=== PATIENT | male | born 1975 | race Caucasian/White ===

== ENCOUNTER 2017-06-27 12:44 | Emergency (ER) | payer BC ==
[~2017-06-27] VITALS: Ht 172.7 cm; Wt 74.8 kg
[~2017-06-27 12:44] MED LIST: CYCL10TA2 PO; DOCU-109 PO; HYDR-2762 PO; HYDR-2766 PO; HYDR-963 PO; METH-38 PO; OXYC-323 PO
[2017-06-27] MEDS ORDERED: IV NORMAL SALINE 1000ML BAG 1,000 ML IV SCH (13:22)
[2017-06-27] MEDS ORDERED: ONDANSETRON PF 4 MG/2 ML VIAL. IV ONE (13:30)
[2017-06-27 13:34] LABS: BASO % 0 % (0-3); EOS % 0 % (0-3); HEMATOCRIT 51.6 % (39.0-53.0); HEMOGLOBIN 17.9 g/dL (13.0-17.5); LYMPH # 2.8 x10^3/uL (1.0-4.8); LYMPH % 25 % (24-48); MEAN CORPUSCULAR HEMOGLOBIN 31 pg (25-35); MEAN CORPUSCULAR HGB CONC 35 g/dL (31-37); MEAN CORPUSCULAR VOLUME 89 fL (79-100); MONO % 5 % (0-9); NEUT % 69 % (31-73); PLATELET COUNT 291 x10^3/uL (140-400); RED BLOOD COUNT 5.78 x10^6/uL (4.30-5.70); RED CELL DISTRIBUTION WIDTH 13.9 % (11.5-14.5); WHITE BLOOD COUNT 10.9 x10^3/uL (4.0-11.0)
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
[2017-06-27 13:45] LABS: CALCIUM 9.3 mg/dL (8.5-10.1); CREATININE 1.1 mg/dL (0.7-1.3); GFR 73.1; POTASSIUM 3.7 mmol/L (3.5-5.1)
[2017-06-27] MEDS: fentaNYL PF VIAL 100 MCG/2 ML VIAL IV PRN ×2 (13:46→14:46)
[2017-06-27 13:51] LABS: ALBUMIN 4.6 g/dL (3.4-5.0); ALBUMIN/GLOBULIN RATIO 1.2 (1.0-1.7); TOTAL BILIRUBIN 0.6 mg/dL (0.2-1.0); TOTAL PROTEIN 8.6 g/dL (6.4-8.2)
[2017-06-27] MEDS ORDERED: CONTRAST GIVEN MC PRN (14:30)
[2017-06-27] MEDS ORDERED: IOHEXOL 300 MG/ML 75 ML VIAL IV ONE (14:30)
[2017-06-27 15:00] LABS: BILIRUBIN,URINE NEGATIVE (NEG); GLUCOSE,URINE NEGATIVE (NEG); NITRITE,URINE NEGATIVE (NEG); PROTEIN,URINE 30 mg/dL (NEG-TRACE); UROBILINOGEN,URINE 0.2 mg/dL (0.2 mg/dL)
[2017-06-27 15:29] LABS: BACTERIA,URINE 0 /HPF (0-FEW); RBC,URINE OCC /HPF (0-2); WBC,URINE OCC /HPF (0-4)
--- NOTE | 2017-06-27 15:36 | RAD ---
Indication abdominal pain. Nausea and vomiting. Axial images through the abdomen and pelvis were obtained. 300 cc of Omnipaque 300 was administered intravenously. No oral contrast was administered for this exam although note is made of contrast in the right colon and to a lesser extent in the transverse colon. No prior CT imaging of the abdomen or pelvis is available. An acute finding at the lung bases is not seen. There is a nodule in the right lung, medially interposed between the esophagus and inferior vena cava, image 5 series 2 measuring approximately 6 mm in greatest dimension. Follow-up imaging along the lines of the Fleischner criteria should be considered. The liver and spleen appear unremarkable. The gallbladder is largely contracted but grossly normal. No pancreatic abnormality is seen. The adrenal glands and kidneys appear normal. Postoperative changes associated with the right acetabulum are noted. Orthopedic screws are noted. In the pelvis no focal mass is seen. There is mild dilatation of proximal loops of small bowel. More distal loops are collapsed. Findings are nonspecific but could represent a low-grade obstructing process. Enteritis would be an additional consideration. There is some associated mild thickening of the proximal loops of small bowel. This would somewhat favor enteritis. IMPRESSION: No focal mass seen in the abdomen or pelvis. Mild dilatation of proximal loops of small bowel. More distal loops are collapsed. Additionally the proximal loops of small bowel demonstrate mild thickening. Findings are suggestive of enteritis although a partially obstructing mechanical small bowel process is not entirely excluded 6 mm nodule medially in the right lower lobe. Follow-up imaging along the lines of the Fleischner criteria should be considered. Nodules detected incidentally at non-screening CT Nodule size (mm) less than or equal to 4 Low Risk patients- no follow-up needed High Risk patients- follow-up at 12 months and if no change, no further imaging needed. Nodule size > 4-6 mm Low risk patients- follow- up at 12 months and if no change, no further imaging needed High risk patients- initial follow-up CT at 6-12 months and then at 18-24 months if no change. Nodule Size > 6-8 mm Low risk patients- initial follow-up CT at 6-12 months and then at 18-24 months if no change. High risk patients- initial follow- up CT at 3-6 months and then at 9-12 months if no change, Nodule Size >8 mm Either low or high risk patients: Follow-up CT at around 3, 9 and 24 months Dynamic contrast enhanced CT, PET, and/or biopsy Note: newly detected indeterminate nodule in person 35 years of age or older. Low risk patients- minimal or absent history of smoking and/or other known risk factors. High risk patients- history of smoking or of other known risk factors.
[2017-06-27 15:39] VITALS: BP 131/76
[2017-06-27] MEDS ORDERED: DICYCLOMINE HCL 10 MG CAPSULE PO ONE (16:15)
[2017-06-27] MEDS ORDERED: ONDA4TAB7 PO (16:19)
[2017-06-27] MEDS ORDERED: DICY10CA53 PO (16:19)
== END 2017-06-27 16:20 | disposition home or self-care (01) ==
LOC: ER 12:44
DX: R10.30 Lower abdominal pain, unspecified (principal); R11.2 Nausea with vomiting, unspecified; R19.7 Diarrhea, unspecified; F10.10 Alcohol abuse, uncomplicated; F12.10 Cannabis abuse, uncomplicated; G89.29 Other chronic pain; Z79.891 Long term (current) use of opiate analgesic
CPT/HCPCS: 36415; 74177; 80053; 81001; 83690; 85027; 87086; 96361; 96374; 96375; 96376; 99285; J2405; J3010; J7030; Q9967

== ENCOUNTER 2017-08-22 09:28 | Emergency (ER) | payer BC ==
[~2017-08-22] VITALS: Ht 172.7 cm; Wt 72.6 kg
[~2017-08-22 09:28] MED LIST changes: +DICY10CA53 PO; +ONDA4TAB7 PO
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
[2017-08-22] MEDS: IV NORMAL SALINE 1000ML BAG 1,000 ML IV SCH (10:44)
[2017-08-22] MEDS: DICYCLOMINE 20 MG/2 ML AMPUL. IM ONE (10:45)
[2017-08-22] MEDS: ONDANSETRON PF 4 MG/2 ML VIAL. IV ONE (10:45)
[2017-08-22] MEDS: IV NORMAL SALINE 1000ML BAG 1,000 ML IV ONE (10:54)
[2017-08-22 12:08] LABS: BILIRUBIN,URINE NEGATIVE (NEG); GLUCOSE,URINE NEGATIVE (NEG); NITRITE,URINE NEGATIVE (NEG); PROTEIN,URINE 30 mg/dL (NEG-TRACE); UROBILINOGEN,URINE 0.2 mg/dL (0.2 mg/dL)
[2017-08-22 12:17] LABS: BASO % 0 % (0-3); EOS % 0 % (0-3); HEMATOCRIT 51.9 % (39.0-53.0); HEMOGLOBIN 17.7 g/dL (13.0-17.5); LYMPH # 1.3 x10^3/uL (1.0-4.8); LYMPH % 9 % (24-48); MEAN CORPUSCULAR HEMOGLOBIN 31 pg (25-35); MEAN CORPUSCULAR HGB CONC 34 g/dL (31-37); MEAN CORPUSCULAR VOLUME 91 fL (79-100); MONO % 4 % (0-9); NEUT % 88 % (31-73); PLATELET COUNT 319 x10^3/uL (140-400); RED BLOOD COUNT 5.72 x10^6/uL (4.30-5.70); RED CELL DISTRIBUTION WIDTH 13.4 % (11.5-14.5); WHITE BLOOD COUNT 14.7 x10^3/uL (4.0-11.0)
--- NOTE | 2017-08-22 12:22 | RAD ---
Three-view acute abdominal series. History: Diffuse abdominal pain low back pain, nausea and vomiting 3 views were taken for acute abdominal series. Lungs are free of infiltrates. Heart is normal in size. There is no effusion. There is no free air on the upright view of the abdomen. There are air-fluid levels in the small bowel from a partial small bowel obstruction or ileus. There is degenerative disc disease in lower lumbar spine. There is an old healed pelvic fracture with plate and screws on the right side of the pelvis. There is a broken drill bit at the pelvis on the right. Impression: 1. Dilated small bowel with fluid levels from a partial bowel obstruction or ileus. 2. No acute infiltrates.
[2017-08-22 12:28] LABS: ALBUMIN 4.6 g/dL (3.4-5.0); ALBUMIN/GLOBULIN RATIO 1.1 (1.0-1.7); CREATININE 0.9 mg/dL (0.7-1.3); GFR 92.1; TOTAL BILIRUBIN 0.5 mg/dL (0.2-1.0); TOTAL PROTEIN 8.8 g/dL (6.4-8.2)
[2017-08-22 12:43] LABS: BACTERIA,URINE 0 /HPF (0-FEW); RBC,URINE 0 /HPF (0-2); WBC,URINE 0 /HPF (0-4)
[2017-08-22 13:08] LABS: % BASOS 1 % (0-3); PLT ESTIMATE ADEQUATE (ADEQUATE)
[2017-08-22] MEDS: POTASSIUM CHLORIDE 20 MEQ TABLET.ER. PO ONE (13:51)
[2017-08-22] MEDS: MORPHINE SULFATE 10 MG/ML VIAL. IV ONE (13:52)
[2017-08-22] MEDS ORDERED: CONTRAST GIVEN MC PRN (14:00)
[2017-08-22] MEDS: IOHEXOL 300 MG/ML 75 ML VIAL IV ONE (14:25)
--- NOTE | 2017-08-22 14:56 | RAD ---
One or more of the following individualized dose reduction techniques were utilized for this examination: 1. Automated exposure control 2. Adjustment of the mA and/or kV according to patient size 3. Use of iterative reconstruction technique CT abdomen and pelvis with contrast. History: Abdominal pain CT scan of the abdomen and pelvis was done using 75 mL Isovue-370 contrast. Lung bases are clear. There is no effusion. There is mild facet arthritis and degenerative change in the lumbar spine. Liver is normal in appearance. There is no calcified gallstone. Spleen and adrenal glands are normal. Pancreas is unremarkable. There is no mass or hydronephrosis and the kidneys. There is mild nonspecific dilatation of the proximal small bowel. Distal small bowel is nondistended. There is fluid in the right colon. Pattern is more likely to be nonspecific mild proximal small bowel ileus rather than obstruction. There is no adenopathy. There is no free fluid. Appendix is normal. Impression: 1. Degenerative changes in the lumbar spine. 2. Mild proximal small bowel dilatation probably a mild ileus or gastroenteritis.
[2017-08-22] MEDS ORDERED: METO10TA81 PO (15:07)
[2017-08-22] MEDS ORDERED: HYDR-971 PO (15:07)
[2017-08-22 15:42] VITALS: BP 169/93
== END 2017-08-22 15:49 | disposition home or self-care (01) ==
LOC: ER 09:28
DX: R11.2 Nausea with vomiting, unspecified (principal); R19.7 Diarrhea, unspecified; R10.31 Right lower quadrant pain; R10.32 Left lower quadrant pain; R10.11 Right upper quadrant pain; R10.12 Left upper quadrant pain; R10.13 Epigastric pain; R10.84 Generalized abdominal pain; F17.200 Nicotine dependence, unspecified, uncomplicated; F10.10 Alcohol abuse, uncomplicated; Z88.6 Allergy status to analgesic agent
CPT/HCPCS: 36415; 74022; 74177; 80053; 81001; 83690; 85007; 85025; 96361; 96372; 96374; 96375; 99285; J0500; J2270; J2405; J7030; Q9967

== ENCOUNTER 2021-04-30 14:50 | Emergency (ER) | payer SELFPAY ==
[~2021-04-30] VITALS: Ht 172.7 cm; Wt 77.3 kg
[~2021-04-30 14:50] MED LIST changes: -HYDR-2762 PO; +HYDR-2765 PO; -HYDR-2766 PO; +HYDR-2769 PO; +HYDR-3135 PO; +HYDR-3164 PO; -HYDR-963 PO; +METO10TA81 PO; -OXYC-323 PO; +OXYC1TAB15 PO
[2021-04-30] MEDS ORDERED: FAMOTIDINE 20 MG/2 ML VIAL IVP ONE (15:30)
[2021-04-30] MEDS ORDERED: ONDANSETRON PF 4 MG/2 ML VIAL. IVP ONE (15:30)
[2021-04-30] MEDS ORDERED: IV NORMAL SALINE 1000ML BAG 1,000 ML IV ONE (15:30)
[2021-04-30 15:42] LABS: BASO # 0.1 x10^3/uL (0.0-0.2); BASO % 1 % (0-3); EOS % 0 % (0-3); HEMATOCRIT 45.2 % (39.0-53.0); LYMPH # 1.8 x10^3/uL (1.0-4.8); LYMPH % 27 % (24-48); MEAN CORPUSCULAR HEMOGLOBIN 32 pg (25-35); MEAN CORPUSCULAR HGB CONC 35 g/dL (31-37); MEAN CORPUSCULAR VOLUME 89 fL (79-100); MONO # 0.3 x10^3/uL (0.0-1.1); MONO % 5 % (0-9); NEUT # 4.5 x10^3/uL (1.8-7.7); NEUT % 67 % (31-73); PLATELET COUNT 260 x10^3/uL (140-400); RED BLOOD COUNT 5.05 x10^6/uL (4.30-5.70); RED CELL DISTRIBUTION WIDTH 13.4 % (11.5-14.5); WHITE BLOOD COUNT 6.7 x10^3/uL (4.0-11.0)
[2021-04-30 15:44] LABS: BILIRUBIN,URINE NEGATIVE (NEG); CLARITY,URINE CLEAR; NITRITE,URINE NEGATIVE (NEG); PH,URINE 5.5 (<5.0-8.0); PROTEIN,URINE NEGATIVE (NEG-TRACE); UROBILINOGEN,URINE 0.2 mg/dL (0.2 mg/dL)
[2021-04-30 15:50] LABS: COLOR,URINE STRAW
[2021-04-30 15:51] LABS: RBC,URINE RARE /HPF (0-2); WBC,URINE 0 /HPF (0-4)
[2021-04-30 15:52] LABS: BACTERIA,URINE 0 /HPF (0-FEW)
[2021-04-30 15:54] LABS: CALCIUM 9.1 mg/dL (8.5-10.1); GFR 80.1; POTASSIUM 4.3 mmol/L (3.5-5.1)
[2021-04-30 15:55] LABS: BARBITURATES NEG (NEG); BENZODIAZEPINES NEG (NEG); CANNABINOIDS POS (NEG); COCAINE NEG (NEG); METHADONE NEG (NEG); OPIATES POS (NEG); PHENCYCLIDINE NEG (NEG)
[2021-04-30 16:00] LABS: ALBUMIN 4.3 g/dL (3.4-5.0); ALBUMIN/GLOBULIN RATIO 1.2 (1.0-1.7); TOTAL BILIRUBIN 0.5 mg/dL (0.2-1.0); TOTAL PROTEIN 7.8 g/dL (6.4-8.2)
[2021-04-30 16:04] LABS: AMPHETAMINE/METHAMPHETAMINE NEG (NEG)
[2021-04-30 16:04] LABS: ACETAMIN < 2 mcg/ml (10-30); ETHANOL < 10 mg/dL (0-10); SALIC 5.6 mg/dL (2.8-20.0)
[2021-04-30] MEDS ORDERED: fentaNYL PF VIAL 100 MCG/2 ML VIAL IVP ONE (16:15)
[2021-04-30] MEDS ORDERED: IOHEXOL 300 MG/ML 100ML VIAL. IV ONE (16:15)
[2021-04-30] MEDS ORDERED: CONTRAST GIVEN. MC PRN (16:30)
--- NOTE | 2021-04-30 17:19 | RAD ---
EXAM: CT Abdomen and Pelvis with IV contrast CLINICAL HISTORY: Reason: abd pain / Spl. Instructions: [id number] 75ML / History: . COMPARISON: none TECHNIQUE: Helical CT of the abdomen and pelvis was performed following the administration of intrave nous contrast. Axial, coronal and sagittal reformatted images were generated. PQRS compliance statement - One or more of the following individualized dose reduction techniques wer e utilized for this study: 1. Automated exposure control 2. Adjustment of the mA and/or kV according to patient size 3. Use of iterative reconstruction technique FINDINGS: Lower Chest: Lung bases are clear. Abdomen and Pelvis: Spleen, adrenal glands, liver and gallbladder are unremarkable. Pancreas is normal in appearance. Symmetric nephrograms. Subcentimeter hypodense left interpolar renal lesion is too small to accuratel y characterize. No hydronephrosis. Bladder wall thickening may be seen with cystitis. Appendix is normal. Moderate colonic stool content is seen. No small or large bowel dilatation. No steve wel obstruction. Trace infiltration about the sigmoid colon. No abdominal pelvic ascites. No abdominal or pelvic lymphadenopathy. Aorta is normal in caliber with atherosclerotic calcifications. Trace fat-containing periumbilical hernia. Bones: Right iliac and acetabular post surgical change. Femoral head osteonecrosis bilaterally. IMPRESSION: 1. Bladder wall thickening likely cystitis. 2. Trace infiltration about the sigmoid colon possibly infectious or inflammatory colitis. 3. 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 Electronically signed by: Lazarus Min MD (04/30/2021 5:17 PM) JEAN
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
[2021-04-30] MEDS ORDERED: HYDR-2759 PO (17:53)
[2021-04-30] MEDS ORDERED: METR500T PO (17:53)
[2021-04-30] MEDS ORDERED: CIPR500T94 PO (17:53)
[2021-04-30] MEDS ORDERED: ALPRAZolam 0.5 MG TABLET ONE (18:41)
[2021-04-30] MEDS ORDERED: ALPRAZolam 0.5 MG TABLET PO ONE (18:45)
[2021-04-30 18:48] VITALS: BP 134/78
== END 2021-04-30 18:58 | disposition home or self-care (01) ==
LOC: ER 14:50
DX: K52.9 Noninfective gastroenteritis and colitis, unspecified (principal); F43.21 Adjustment disorder with depressed mood; F17.200 Nicotine dependence, unspecified, uncomplicated; Z88.6 Allergy status to analgesic agent
CPT/HCPCS: 36415; 74177; 80053; 80307; 80329; 81001; 83690; 85025; 96361; 96374; 96375; 99285; G0480; J2405; J3010; J3490; J7030; Q9967